=== PATIENT | female | born 1990 | race Caucasian/White ===

== ENCOUNTER 2020-05-04 10:18 | Outpatient (CLI) | payer BC ==
[2020-05-04 15:04] LABS: BASOPHILS % (AUTO) 0.7 %; EOSINOPHILS # (AUTO) 0.1 10^3/uL (0.0-0.7); EOSINOPHILS % (AUTO) 2.4 %; HGB - HEMOGLOBIN 13.9 g/dL (12.0-16.0); LYMPHOCYTES % (AUTO) 37.8 %; MEAN CORPUSCULAR HGB CONC 32.3 g/dL (32.0-36.0); MEAN CORPUSCULAR VOLUME 92.9 fL (81.0-99.0); MONOCYTES # (AUTO) 0.4 10^3/uL (0.0-1.0); MONOCYTES % (AUTO) 6.7 %; NEUTROPHILS # (AUTO) 2.8 10^3/uL (1.5-6.6); NEUTROPHILS % (AUTO) 52.2 %; PLT - PLATELET COUNT 269 10^3/uL (130-450); RED BLOOD COUNT 4.63 10^6/uL (4.20-5.40); RED CELL DISTRIBUTION WIDTH 11.9 % (12.0-15.0); WHITE BLOOD COUNT 5.3 x10^3/uL (4.8-10.8)
[2020-05-04 15:24] LABS: BILIRUBIN,URINE NEGATIVE (NEGATIVE); GLUCOSE, URINE (UA) NEGATIVE (NEGATIVE); KETONES,URINE (UA) NEGATIVE (NEGATIVE); LEUKOCYTE ESTERASE, URINE NEGATIVE (NEGATIVE); NITRITE,URINE NEGATIVE (NEGATIVE); OCCULT BLOOD,URINE NEGATIVE (NEGATIVE); PROTEIN,URINE NEGATIVE (NEGATIVE); UROBILINOGEN,URINE 0.2 (NORMAL) E.U./dL (NORMAL)
[2020-05-04 15:30] LABS: CLARITY,URINE CLEAR (CLEAR)
[2020-05-04 15:39] LABS: ALBUMIN 4.6 g/dL (3.2-5.5); ALBUMIN/GLOBULIN RATIO 1.8 (1.0-2.2); ALKALINE PHOSPHATASE 40 IU/L (42-121); ALT ALANINE AMINOTRANSFERASE 17 IU/L (10-60); AST ASPARTATE AMINOTRANSFERASE 19 IU/L (10-42); BILIRUBIN,TOTAL 0.9 mg/dL (0.2-1.0); BUN - BLOOD UREA NITROGEN 12 mg/dL (6-20); CALCIUM 9.4 mg/dL (8.5-10.3); CARBON DIOXIDE - CO2 26 mmol/L (21-32); CHLORIDE 102 mmol/L (101-111); CHOL/HDL RATIO 2.4 (<4.4); CHOLESTEROL 213 mg/dL; CREATININE 0.6 mg/dL (0.4-1.0); GLUCOSE 91 mg/dL (70-100); HDL CHOLESTEROL 90 mg/dL; LDL CHOLESTEROL,CALCULATED 114 mg/dL; LDL/HDL RATIO 1.3 (<4.4); TOTAL PROTEIN 7.2 g/dL (6.7-8.2); VLDL CHOLESTEROL 9 mg/dL
[2020-05-04 15:52] LABS: FREE T3 3.42 pg/mL (2.5-3.9)
[2020-05-04 20:12] LABS: HEMOGLOBIN A1c% 4.9 % (4.27-6.07)
== END 2020-05-04 10:19 | disposition home or self-care (01) ==
LOC: LAB.S 10:18
PROVIDERS: ATTEND Naturopath
DX: Z13.0 Encounter for screening for diseases of the blood and blood-forming organs and certain disorders involving the immune mechanism (principal); Z13.1 Encounter for screening for diabetes mellitus; Z13.21 Encounter for screening for nutritional disorder; Z13.220 Encounter for screening for lipoid disorders
CPT/HCPCS: 36415; 80053; 80061; 81001; 81003; 83036; 83721; 84443; 84481; 85025

== ENCOUNTER 2022-06-27 16:41 | Outpatient (CLI) | payer OTHER ==
--- NOTE | 2022-06-28 14:29 | XRAY Report ---
PROCEDURE: Foot 3 View LT INDICATIONS: LT FOOT PAIN TECHNIQUE: 3 views of the foot were acquired. COMPARISON: None FINDINGS: Bones: No fractures or dislocations. No suspicious bony lesions. Very minimal first MTP narrowing with very minimal angulation. Soft tissues: No tibiotalar joint effusion. Achilles tendon appears normal. IMPRESSION: Very minimal first MTP narrowing and angulation. Given the very minimal appearance, it could also be positional. Reviewed by: Sona Bills MD on 06/28/2022 2:28 PM PDT Approved by: Sona Bills MD on 06/28/2022 2:28 PM PDT Station ID: [id number]
== END 2022-06-27 16:42 | disposition home or self-care (01) ==
LOC: DI 16:41
PROVIDERS: ATTEND Podiatrist
DX: M79.672 Pain in left foot (principal)

== ENCOUNTER 2022-08-16 09:39 | Outpatient (CLI) | payer OTHER | END 2022-08-16 09:40 | disposition home or self-care (01) | LOC: LAB.S 09:39 | PROVIDERS: ATTEND Naturopath | DX: N92.5 Other specified irregular menstruation (principal) | CPT/HCPCS: 36415; 84702 ==